=== PATIENT | female | born 1995 | race Caucasian/White ===

== ENCOUNTER 2019-06-08 16:25 | Emergency (ER) | payer OTHER, MEDICAID, SELFPAY ==
[2019-06-08 16:34] VITALS: BP 106/66; PULSE 63; RESP 15; TEMP 36.8; O2SAT 98; BMI 22.4
[2019-06-08 17:07] LABS: RBC Urine None Seen (0-5/HPF)
[2019-06-08 17:19] LABS: Bacteria Urine Moderate (10-30); Culture Indicated Urine Cult Not Indicated; Squamous Epithelial Cell Urine 10-30 /HPF (0-5/HPF); WBC Urine 0-1/HPF (0-5/HPF)
--- NOTE | 2019-06-08 18:00 | PC.NURSE ---
Wants to be tested after exposure to herpes
[2019-06-08] MEDS: AZITHROMYCIN 250 MG TABLET 1000 MG PO (18:47)
[2019-06-08] MEDS: cefTRIAXone 500 MG VIAL 250 MG IM (19:00)
[2019-06-08] MEDS: LIDOCAINE 1% 20 ML INJ 10 ML INJ (19:01)
[2019-06-08 19:13] VITALS: BP 108/72; PULSE 77; RESP 16; O2SAT 99
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
== END 2019-06-08 19:14 | disposition home or self-care (01) ==
PROVIDERS: Emergency Medicine; Emergency Provider Nurse Practitioner Family
DX: Z76.89 Persons encountering health services in other specified circumstances (principal)
CPT/HCPCS: 81003; 81015; 81025; 87070; 87147; 87205; 87491; 87591; 96372; 99283; J0696

== ENCOUNTER 2019-07-11 02:22 | Emergency (ER) | payer OTHER, MEDICAID, SELFPAY ==
[2019-07-11 02:30] VITALS: BP 114/66; PULSE 120; RESP 20; TEMP 37.4; O2SAT 100
--- NOTE | 2019-07-11 02:40 | ED.FEMALEGU ---
HPI - Female Genitourinary General Chief complaint: Skin/Abscess/Foreign Body Stated complaint: spider bite behind left leg/cant sleep,sit,walk Time Seen by Provider: 07/11/19 02:31 Source: patient Mode of arrival: ambulatory Limitations: no limitations History of Present Illness HPI Narrative: This is a 24-year-old female comes emergency department with complaint of ?spider bite behind the left leg at the crease of the buttock. Patient states that it has been there for couple days. It has been getting worse. Patient states she is quite uncomfortable. It has been red and getting more swollen. She has not had any fevers. She has not had any chest pain or shortness of breath, no abdominal pain, no issues with nausea or vomiting and denies any bowel movements issues. Patient does shave regularly and states that she may have shaved recently exacerbating or initiating any issue. She denies other medical issues. She has not had issues with skin infections in the past Related Data Previous Rx's Medication Instructions Recorded sulfamethoxazole-trimethoprim 1 tab PO Q12H #14 tab 07/11/19 [Bactrim DS] Allergies Allergy/AdvReac Type Severity Reaction Status Date / Time No Known Drug Allergies Allergy Verified 06/08/19 16:34 Review of Systems Review of Systems ROS Unobtainable: All systems reviewed & are unremarkable except as noted in HPI and below PFSH Surgical History No pertinent past surgical history (Acute) Social History (Updated 06/09/19 @ 03:39 by ALVA Short) Smoking Status: Never smoker Social History (Updated 07/11/19 @ 02:42 by Lourdes Hudson DO) Smoking Status: Never smoker alcohol intake: current substance use type: marijuana Exam Narrative Exam Narrative: GENERAL: Alert and oriented x three, then, well-appearing female in mild distress. HEENT: Head normocephalic, atraumatic, EOMI, pupils reactive, face symmetric, moist mucous membranes NECK: Supple, full range of motion CARDIOVASCULAR: Regular rate and rhythm without murmurs, rubs or gallops. RESPIRATORY: Breath sounds equal bilaterally, no wheezes rales or rhonchi. ABDOMEN: Soft, nontender. Normoactive bowel sounds all 4 quadrants. No guarding or rebound, rigidity, no mass : No CVA tenderness EXTREMITIES: Normal range of motion, no clubbing or edema. Neurovascularly intact NEUROLOGICAL: Cranial nerves II through XII grossly intact. Moving all extremities SKIN: Warm, dry, no petechiae, patient has erythema and swelling with induration at the left gluteal fold. No fluctuance but patient has some surrounding cellulitis. There is no active drainage there is a little bit of serosanguineous drainage. Initial Vital Signs Initial Vital Signs: Vital Signs Temperature 99.4 F 07/11/19 02:30 Pulse Rate 120 H 07/11/19 02:30 Respiratory Rate 20 07/11/19 02:30 Blood Pressure 114/66 07/11/19 02:30 Pulse Oximetry 100 07/11/19 02:30 Procedures Abscess I/D Site: other (left) Side (if applicable): right Local Anesthetic: lidocaine 1% Amount of anesthesia used (mL): 4 Technique: incised with #11 blade Amount of fluid expressed (mL): 5 Irrigation: Yes Packing used?: none Course Orders Ordered: Discontinued Medications Ibuprofen (Advil) 800 mg PO NOW ONE Stop: 07/11/19 02:42 Last Admin: 07/11/19 02:46 Dose: 800 mg Documented by: ZAYRAARRINGPREM Lidocaine/Prilocaine (Lidocaine-Prilocaine Cream) 5 gm TOP NOW ONE Stop: 07/11/19 02:42 Last Admin: 07/11/19 02:46 Dose: 5 gm Documented by: [facility] Lidocaine/Sodium Bicarbonate (Buffered Lidocaine 10 Ml Syr) 10 ml INJ NOW ONE Stop: 07/11/19 02:42 Trimethoprim/Sulfamethoxazole (Bactrim Ds Prepack) 1 bottle MISC SEEINSTR ONE Stop: 07/11/19 03:49 Last Admin: 07/11/19 04:12 Dose: 1 bottle Documented by: CHERISE Vital Signs Vital signs: Vital Signs - 8 hr 07/11/19 02:30 Temperature 99.4 F Pulse Rate 120 H Respiratory Rate 20 Blood Pressure 114/66 Pulse Oximetry 100 MDM - Female Genitourinary MDM Narrative Medical decision making narrative: Patient tolerated procedure well, had small amount of purulent fluid out. Patient did have some improvement of discomfort. She had mild amount of bleeding. Patient had dressing placed and we discussed using large Kotex or pads over the next several days. Discussed warm compresses and would start antibiotics as she had very minimal output and does have some surrounding cellulitis extending about 4 5 cm beyond the area of abscess. Patient is to return in 24-48 hours for recheck if she does have a primary care to follow with, given first dose of oral abx in department. Discharge Plan Departure Patient Disposition: Home Clinical Impression: Abscess of skin or subcutaneous tissue Qualifiers: Site of cutaneous abscess: buttock Qualified Code(s): L02.31 - Cutaneous abscess of buttock Cellulitis Qualifiers: Site of cellulitis: buttock Qualified Code(s): L03.317 - Cellulitis of buttock Discharge Date/Time: 07/11/19 04:13 Instructions: DI for Skin Abscess Activity Restrictions/Additional Instructions: Follow-up with primary care or return to the emergency department for recheck in 24-48 hours if your symptoms are not rapidly improving. Continue ibuprofen up to 800 mg every 8 hours and Tylenol up to a 1000 mg every 8 hours. Take antibiotics as prescribed. Use heat packs or warm compresses/soaks to affected area 4 times daily. Wound Care: Keep wound(s) clean and dry. Wash daily with soap and water only. Do not use over the counter products (alcohol or peroxide)on the wounds unless instructed by a physician. If wound condition worsens (increased/expanding redness, developing fluid blisters, or worsening pain), if fever greater than 100.4 Fahrenheit, increased swelling, increasing pain or worsening symptoms such as increased discharge or spreading redness, persistent vomiting, return to the emergency department. Prescriptions: New sulfamethoxazole-trimethoprim [Bactrim DS] 800-160 mg tablet 1 tab PO Q12H Qty: 14 RF: 0
[2019-07-11] MEDS: IBUPROFEN 400 MG TABLET 800 MG PO (02:46)
[2019-07-11] MEDS: LIDOCAINE/PRILOCAINE 5 GM TOP (02:46)
[2019-07-11] MEDS: TRIMETH/SULFA 160/800 PREPACK 1 BOTTLE MISC (04:12)
== END 2019-07-11 04:13 | disposition home or self-care (01) ==
PROVIDERS: Emergency Provider Emergency Medicine
DX: L02.31 Cutaneous abscess of buttock (principal); L03.317 Cellulitis of buttock
CPT/HCPCS: 10060; 99282

== ENCOUNTER 2019-07-12 14:34 | Emergency (ER) | payer OTHER, MEDICAID, SELFPAY ==
[2019-07-12 14:42] VITALS: BP 125/102; PULSE 99; RESP 14; TEMP 37.2; O2SAT 95; BMI 19.7
--- NOTE | 2019-07-12 15:08 | ED_ITS ---
HPI - Skin/Abscess/Foreign Bdy <ALVA Hill - Last Filed: 07/12/19 21:08> General Chief complaint: Skin/Abscess/Foreign Body Stated complaint: Wound on leg recheck, in ER 2 days ago Time Seen by Provider: 07/12/19 14:59 Source: patient Mode of arrival: ambulatory Limitations: no limitations History of Present Illness HPI narrative: 24-year-old female presents emergency department today for re- evaluation of the abscess on her left groin area. She states that she was told to return for recheck, the wound is getting much better and she continues to have wheezing of purulent and serosanguineous liquid. Patient sedation move the packing yesterday by herself. She states she did not take any antibiotics that were prescribed her, but plans to fill them today. Patient reports that the wound pain has significantly decreased as well. She denies any fevers, chills, chest pain, shortness of breath, dizziness, abdominal pain, vomiting, nausea, diarrhea, or other concerning issues. She states that she still has her prescription with her that was given to her 2 days ago. Related Data Previous Rx's Medication Instructions Recorded sulfamethoxazole-trimethoprim 1 tab PO Q12H #14 tab 07/11/19 [Bactrim DS] Allergies Allergy/AdvReac Type Severity Reaction Status Date / Time No Known Drug Allergies Allergy Verified 07/12/19 14:42 Review of Systems <ALVA Hill - Last Filed: 07/12/19 21:08> Review of Systems Narrative: REVIEW OF SYSTEMS: GENERAL: Denies fever or chills. HENT: Denies head trauma. EYE: Denies double vision or vision loss. CARDIOVASCULAR: Denies syncope. MUSCULOSKELETAL: Denies weakness, or deformities. INTEGUMENTARY: Complains of wound to left thigh, here for re-evaluation, see HPI. NEURO: Denies numbness or tingling. PFSH <ALVA Hill - Last Filed: 07/12/19 21:08> Surgical History No pertinent past surgical history (Acute) Social History (Updated 07/11/19 @ 02:42 by Lourdes Hudson DO) Smoking Status: Never smoker alcohol intake: current substance use type: marijuana Social History Smoking Status: Never smoker alcohol intake: current substance use type: marijuana Exam <ALVA Hill - Last Filed: 07/12/19 21:08> Initial Vital Signs Initial Vital Signs: Vital Signs Temperature 98.9 F 07/12/19 14:42 Pulse Rate 99 H 07/12/19 14:42 Respiratory Rate 14 07/12/19 14:42 Blood Pressure 125/102 H 07/12/19 14:42 Pulse Oximetry 95 07/12/19 14:42 PHYSICAL EXAMINATION: GENERAL: Well groomed, alert, and cooperative. Answers questions promptly and appropriately. Vital signs noted. HENT: Normocephalic, atraumatic. RESPIRATORY: Normal respiratory rate, trachea midline, airway patent. No stridor, nasal flaring or accessory muscle use. MUSCULOSKELETAL: Normal gait and coordination. Equal tone and mass bilaterally. EXTREMITIES: CMS intact. Moves all extremities. SKIN: Warm, dry, soft, appropriate color for ethnicity. 4cm abscess to left and that with a 1cm incision donna it continues to drain serosanguineous in the small amount of purulent fluid. About 2-4 cm of surrounding cellulitis to area. Patient reports significantly increased tenderness with palpation, decreased size, and decreased pain. NEURO: Alert and Oriented X 3. Good coordination. PSYCH: Appropriate affect and mood. <Steffanie Lin MD - Last Filed: 07/13/19 16:25> Initial Vital Signs Initial Vital Signs: Vital Signs Temperature 98.9 F 07/12/19 14:42 Pulse Rate 99 H 07/12/19 14:42 Respiratory Rate 14 07/12/19 14:42 Blood Pressure 125/102 H 07/12/19 14:42 Pulse Oximetry 95 07/12/19 14:42 Course <ALVA Hill - Last Filed: 07/12/19 21:08> Course Course Narrative: Due to the fact that patient reported decreased pain and size of the abscess in the the wound continued to drain, there was no indication for additional I & D procedures. I had an extensive conversation with the patient about the importance of taking her antibiotics due to surrounding infection. First dose was given in the emergency department, I verified that she can't had the script. She states she was going to go to the pharmacy after she was discharged. Orders Ordered: Discontinued Medications Trimethoprim/Sulfamethoxazole (Bactrim Ds) 1 tab PO NOW ONE Stop: 07/12/19 15:33 Last Admin: 07/12/19 15:41 Dose: 1 tab Documented by: BTONER Vital Signs Vital signs: Vital Signs - 8 hr 07/12/19 14:42 07/12/19 16:01 Temperature 98.9 F Pulse Rate 99 H 66 Respiratory Rate 14 18 Blood Pressure 125/102 H 99/69 Pulse Oximetry 95 99 <Steffanie Lin MD - Last Filed: 07/13/19 16:25> Orders Ordered: Discontinued Medications Trimethoprim/Sulfamethoxazole (Bactrim Ds) 1 tab PO NOW ONE Stop: 07/12/19 15:33 Last Admin: 07/12/19 15:41 Dose: 1 tab Documented by: BTONER Vital Signs Vital signs: Vital Signs - 8 hr 07/12/19 14:42 07/12/19 16:01 Temperature 98.9 F Pulse Rate 99 H 66 Respiratory Rate 14 18 Blood Pressure 125/102 H 99/69 Pulse Oximetry 95 99 MDM - Skin/Abscess/Foreign Bdy <ALVA Hill - Last Filed: 07/12/19 21:08> Medical Records Attestation: I reviewed the patient's medical records. Lab Data Attestation: I reviewed the patient's lab results. MDM Narrative Medical decision making narrative: Differential includes continued cellulitis and small abscess that continues to drain. I do not suspect that patient is septic as she does not exhibit fevers, she is not tachycardic, and she appears very well and hemodynamically stable. She also reports that the wound is significantly decreasing in size and feeling much better. Patient was given a dose of antibiotics in the emergency department if she does not appear to be very compliant with these doses. She was encouraged to come back for re- evaluation if needed or if her symptoms get worse. Strict return precautions given and follow-up instructions discussed. Discharge Plan Departure Patient Disposition: Home Clinical Impression: Abscess of skin or subcutaneous tissue Qualifiers: Site of cutaneous abscess: extremity Site of cutaneous abscess of extremity: lower extremity Laterality: left Qualified Code(s): L02.416 - Cutaneous abscess of left lower limb Cellulitis Qualifiers: Site of cellulitis: extremity Site of cellulitis of extremity: lower extremity Laterality: left Qualified Code(s): L03.116 - Cellulitis of left lower limb Discharge Date/Time: 07/12/19 16:01 Instructions: DI for Cellulitis -- Adult Activity Restrictions/Additional Instructions: Thank you for entrusting me with your care today. As discussed, appears your wound is looking better. I highly suggest that you take the antibiotics that were given to you as this will help your wound and surrounding infection resolve even quicker. Please follow up with your primary care provider in the next week or return to the emergency department if you develop worsening symptoms such as increased fever, chills, vomiting, dizziness, increased redness, increased swelling, or significant change in your pain. Prescriptions: No Action sulfamethoxazole-trimethoprim [Bactrim DS] 800-160 mg tablet 1 tab PO Q12H Qty: 14 RF: 0
[2019-07-12] MEDS: TRIMETH/SULFA 160/800 (DS) TABLET 1 TAB PO (15:41)
--- NOTE | 2019-07-12 15:55 | PC.NURSE ---
pt redressed her own wound.
[2019-07-12 16:01] VITALS: BP 99/69; PULSE 66; RESP 18; O2SAT 99
== END 2019-07-12 16:01 | disposition home or self-care (01) ==
PROVIDERS: Emergency Provider Nurse Practitioner
DX: L02.416 Cutaneous abscess of left lower limb (principal); L03.116 Cellulitis of left lower limb
CPT/HCPCS: 99282

== ENCOUNTER 2019-09-12 01:38 | Emergency (ER) | payer SELFPAY ==
[2019-09-12 01:54] VITALS: BP 124/72; PULSE 90; RESP 24; TEMP 36.4; O2SAT 100
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
[2019-09-12 02:31] VITALS: BP 125/71; PULSE 84; RESP 20; O2SAT 99
[2019-09-12] MEDS: IBUPROFEN 400 MG TABLET PO (02:52)
[2019-09-12 03:16] LABS: UR Morphine/Opiate cutoff 300 Negative (Negative); Ur Creatinine 50 (Normal); Ur Specific Gravity >1.030 (Normal); Urine Amphetamines Positive (Negative); Urine Barbiturates Negative (Negative); Urine Benzodiazepines Negative (Negative); Urine Cocaine Positive (Negative); Urine MDMA Positive (Negative); Urine Methadone Negative (Negative); Urine Methamphetamines Positive (Negative); Urine Oxycodone Negative (Negative); Urine Phencyclidine Negative (Negative); Urine Tetrahydrocannabinol Positive (Negative); Urine Tricyclic Antidepressant Negative (Negative); Urine pH 5 (Normal)
[2019-09-12 03:54] VITALS: BP 122/72; PULSE 80; RESP 18; O2SAT 98
--- NOTE | 2019-09-12 03:55 | PC.NURSE ---
She left smiling and thankfull.Stated she just wanted to go home and sleep.
== END 2019-09-12 03:54 | disposition home or self-care (01) ==
PROVIDERS: Emergency Provider Emergency Medicine
DX: S29.011A Strain of muscle and tendon of front wall of thorax, initial encounter (principal); F19.10 Other psychoactive substance abuse, uncomplicated
CPT/HCPCS: 80305; 93005; 99282; 99284

== ENCOUNTER → 2020-12-15 13:46 | Outpatient (CLI) | payer OTHER, MEDICAID, SELFPAY ==
[2020-12-15 14:24] LABS: Add Manual Diff / Slide Review NO; Basophils Absolute Auto 0 /uL (0-100); Basophils Percent Auto 0.9 % (0-2); Eosinophils Absolute Auto 100 /uL (0-450); Eosinophils Percent Auto 1.7 % (2-4); Hemoglobin 13.2 g/dL (12.0-16.0); Lymphocytes Absolute Auto 1600 /uL (1100-4500); Lymphocytes Percent Auto 29.7 % (25-40); Mean Corpuscular HGB Conc 33.7 % (30-36); Mean Corpuscular Hemoglobin 32.1 PG (26-34); Mean Corpuscular Volume 95.1 fL (80-100); Monocytes Absolute Auto 400 /uL (0-900); Neutrophils Absolute Auto 3200 /uL (1500-7000); Neutrophils Percent Auto 59.7 % (50-75); Platelet Count 170 X10^3/uL (150-400); Red Cell Distribution Width 12.7 % (11.6-14.8); White Blood Cell Count 5.4 X10^3/uL (4.5-11.0)
[2020-12-15 14:37] LABS: Alanine Aminotransferase 14 IU/L (<35); Albumin 4.5 g/dL (3.5-5.0); Albumin Globulin Ratio 1.5 (1.0-2.8); Alkaline Phosphatase 64 U/L (38-126); Aspartate Aminotransferase 23 IU/L (14-36); BUN Creatinine Ratio 18.8 (6-22); Bilirubin Total 0.6 mg/dL (0.2-1.3); Blood Urea Nitrogen 13 mg/dL (7-17); Calcium 9.3 mg/dL (8.4-10.2); Carbon Dioxide 25 mmol/L (22-32); Chloride 106 mmol/L (98-107); Estimated Glomerular Filt Rate > 60.0 mL/min (>60); Glucose 90 mg/dL (70-100); HEMOLYSIS < 15 (0-50); Potassium 4.2 mmol/L (3.4-5.1); Sodium 138 mmol/L (137-145); Total Protein 7.5 g/dL (6.3-8.2)
[2020-12-15 15:46] LABS: Free T4, Direct Thyroxine 1.27 ng/dL (0.78-2.19)
[2020-12-15 16:00] LABS: Thyroid Stimulating Hormone 0.733 uIU/mL (0.47-4.68)
== END ==
PROVIDERS: PCP Registered Nurse; Referring Provider Registered Nurse; Visit Provider Registered Nurse
DX: F32.9 Major depressive disorder, single episode, unspecified (principal); F41.9 Anxiety disorder, unspecified
CPT/HCPCS: 36415; 80053; 84439; 84443; 85025

== ENCOUNTER → 2021-08-13 11:17 | Outpatient (CLI) | payer OTHER, MEDICAID, SELFPAY ==
[2021-08-13 13:10] LABS: Hepatitis B Surface Antigen NEGATIVE s/c (NEGATIVE)
[2021-08-13 13:19] LABS: Urine N gonorrhoeae NOT DETECTED
[2021-08-13 13:25] LABS: HIV 1 & 2 Ab/Ag 4th Gen Combo NEGATIVE (NEGATIVE); Hep C Virus Ab w/Reflex Quant NEGATIVE s/c (NEGATIVE)
[2021-08-13 13:39] LABS: Urine Chlamydia NOT DETECTED
[2021-08-14 04:01] LABS: HSV 2 IGG AB < 0.91 index (0.00-0.90); HSV1IGG < 0.91 index (0.00-0.90)
[2021-08-14 06:17] LABS: RPR Screen Non Reactive (Non Reactive)
[2021-08-14 20:18] LABS: HSV I/II IgM <0.91 Ratio (0.00-0.90)
== END ==
PROVIDERS: Nurse Practitioner; PCP Registered Nurse; Referring Provider Registered Nurse; Visit Provider Registered Nurse
DX: Z20.2 Contact with and (suspected) exposure to infections with a predominantly sexual mode of transmission (principal)
CPT/HCPCS: 36415; 86592; 86694; 86695; 86696; 86803; 87340; 87389; 87491; 87591

== ENCOUNTER → 2021-09-03 17:16 | Outpatient (CLI) | payer MEDICAID, SELFPAY | PROVIDERS: Referring Provider Physician Assistant; Visit Provider Physician Assistant | DX: M79.671 Pain in right foot (principal); Z53.9 Procedure and treatment not carried out, unspecified reason ==

== ENCOUNTER → 2021-09-03 17:22 | Outpatient (CLI) | payer OTHER, MEDICAID, SELFPAY ==
--- NOTE | 2021-09-03 17:30 | DI.RAD.S_ITS ---
PROCEDURE: XR FOOT RT MIN 3V INDICATIONS: R 1st MTP pain TECHNIQUE: 3 views of the foot were acquired. COMPARISON: None. FINDINGS: Bones: No fractures or dislocations. No suspicious bony lesions. No osseous erosive changes. Soft tissues: No tibiotalar joint effusion. Achilles tendon appears normal. IMPRESSION: No fracture. No osseous lesion. If symptoms and/or clinical suspicion for pathology persists, further assessment with repeat radiographs (7-10 days) or advanced imaging (e.g. CT, MRI or bone scan) should be considered. Dictated by: Pallavi Blue MD, PhD on 09/03/2021 at 16:41 Approved by: Pallavi Blue MD, PhD on 09/03/2021 at 16:42
== END ==
PROVIDERS: PCP Registered Nurse; Referring Provider Physician Assistant; Visit Provider Physician Assistant
DX: M79.671 Pain in right foot (principal)
CPT/HCPCS: 73630

== ENCOUNTER 2021-09-23 14:38 | Emergency (ER) | payer MEDICAID, SELFPAY ==
[2021-09-23 15:00] VITALS: BP 117/63; PULSE 98; RESP 18; TEMP 36.8; O2SAT 97
== END 2021-09-23 16:00 | disposition left against medical advice (07) ==
PROVIDERS: Emergency Provider Emergency Medicine; PCP Registered Nurse
DX: Z53.21 Procedure and treatment not carried out due to patient leaving prior to being seen by health care provider (principal)
CPT/HCPCS: 99281

== ENCOUNTER → 2022-03-03 18:22 | Outpatient (CLI) | payer OTHER, MEDICAID, SELFPAY ==
[2022-03-03 19:19] LABS: Pregnancy Test Urine Negative (Negative)
[2022-03-03 20:45] LABS: Urine N gonorrhoeae NOT DETECTED
[2022-03-03 20:46] LABS: Urine Chlamydia NOT DETECTED
== END ==
PROVIDERS: PCP Registered Nurse; Visit Provider Nurse Practitioner Family
DX: N89.8 Other specified noninflammatory disorders of vagina (principal); Z32.02 Encounter for pregnancy test, result negative
CPT/HCPCS: 81025; 87210; 87491; 87591

== ENCOUNTER → 2025-02-18 15:20 | Outpatient (CLI) | payer SELFPAY ==
[2025-02-18 16:05] LABS: Add Manual Diff / Slide Review NO; Basophils Absolute Auto 0 /uL (0-100); Basophils Percent Auto 0.6 % (0-2); Eosinophils Absolute Auto 100 /uL (0-450); Eosinophils Percent Auto 1.6 % (2-4); Hematocrit 40.4 % (36-46); Hemoglobin 13.7 g/dL (12.0-16.0); Lymphocytes Absolute Auto 2500 /uL (1100-4500); Lymphocytes Percent Auto 33.2 % (25-40); Mean Corpuscular Hemoglobin 32.9 PG (26-34); Mean Corpuscular Volume 96.9 fL (80-100); Monocytes Absolute Auto 500 /uL (0-900); Monocytes Percent Auto 7.4 % (3-14); Neutrophils Absolute Auto 4200 /uL (1500-7000); Neutrophils Percent Auto 57.2 % (50-75); Platelet Count 214 X10^3/uL (150-400); Red Blood Cell Count 4.17 X10^6/uL (4.0-5.2); Red Cell Distribution Width 12.3 % (11.6-14.8); White Blood Cell Count 7.4 X10^3/uL (4.5-11.0)
[2025-02-18 16:10] LABS: Appearance Urine UA CLEAR; Bilirubin Urine UA NEGATIVE (NEGATIVE); Color Urine UA YELLOW; Glucose Urine UA NEGATIVE (Negative); Ketones Urine UA NEGATIVE (NEGATIVE); Leukocyte Esterase Urine UA NEGATIVE (NEGATIVE); Nitrite Urine UA NEGATIVE (Negative); Occult Blood Urine UA NEGATIVE (Negative); Protein Urine UA NEGATIVE (Negative); Specific Gravity Urine UA 1.025 (1.000-1.035); Urobilinogen Urine UA 0.2 E.U./dL (0.2)
[2025-02-18 16:11] LABS: pH Urine UA 5.5 (4.5-8.0)
[2025-02-18 16:17] LABS: Bacteria Urine None Seen; RBC Urine None Seen (0-5/HPF); Squamous Epithelial Cell Urine 0-1 /HPF (0-5/HPF); Urine Volume 10mL (spun); WBC Urine None Seen (0-5/HPF)
[2025-02-18 16:18] LABS: Culture Indicated Urine Cult Not Indicated; Mucus Urine 1+ (Negative)
[2025-02-18 16:21] LABS: Alanine Aminotransferase 14 IU/L (<35); Albumin 4.6 g/dL (3.5-5.0); Albumin Globulin Ratio 1.6 (1.0-2.8); Alkaline Phosphatase 57 U/L (38-126); Aspartate Aminotransferase 24 IU/L (14-36); BUN Creatinine Ratio 16.4 (6-22); Bilirubin Total 0.4 mg/dL (0.2-1.3); Blood Urea Nitrogen 12 mg/dL (7-17); Calcium 9.4 mg/dL (8.4-10.2); Carbon Dioxide 25 mmol/L (22-32); Chloride 105 mmol/L (98-107); Estimated Glomerular Filt Rate > 60 mL/min (>60); Globulin 2.9 g/dL (1.7-4.1); Glucose 89 mg/dL (70-100); HEMOLYSIS < 15 (0-50); Sodium 139 mmol/L (137-145); Total Protein 7.5 g/dL (6.3-8.2)
[2025-02-18 16:54] LABS: TSH w/ Reflex to FT4 0.52 uIU/mL (0.47-4.68)
== END ==
LOC: LAB 15:23
PROVIDERS: PCP Family Medicine; Referring Provider Family Medicine; Visit Provider Family Medicine
DX: R53.83 Other fatigue (principal); Z86.59 Personal history of other mental and behavioral disorders; D64.9 Anemia, unspecified
CPT/HCPCS: 36415; 80053; 81001; 84443; 85025